=== PATIENT | female | born 2000 | race Caucasian/White ===

== ENCOUNTER 2024-11-12 08:07 | Emergency (ER) | payer BC, SELFPAY ==
[2024-11-12] VITALS (8 sets, daily range): BP systolic 104–131; BP diastolic 70–93; PULSE 55–106; RESP 16–19; TEMP 37; O2SAT 95–100; BMI 25.6
--- NOTE | 2024-11-12 08:23 | HMH.EDGENADL ---
Discharge Plan Disposition Patient Disposition: Home, Self-Care Prescriptions Prescriptions: New nitrofurantoin monohyd/m-cryst [Macrobid] 100 mg capsule 100 mg PO BID 5 Days Qty: 10 0RF Rx Instructions: must administer with a meal/food ondansetron 4 mg tablet,disintegrating 4 mg PO Q6H PRN (Reason: nausea and vomiting) Qty: 16 0RF Referrals Follow up/Referrals: Provider,Referral, MD [Primary Care Provider, Medical] - See instructions Activity Restrictions/Add. Instructions Additional Instructions/Restrictions: You are being prescribed Macrobid to treat your urinary tract infection. Take this as prescribed. You are also being prescribed Zofran to help with nausea. You likely have a viral illness causing your ear pain, sore throat and bodyaches. Continue Tylenol, ibuprofen at home to help with symptoms. Continue to hydrate well by drinking plenty of fluids, including water, sugar-free Gatorade and Pedialyte. Follow-up with your primary care physician early next week if symptoms do not improve. If you develop any new or worsening symptoms, or if you become concerned for your health for any reason, return to the emergency department for evaluation Clinical Impressions Clinical Impression: Urinary tract infection, Nausea Instructions Patient Instructions: DI for Urinary Tract Infection (UTI), DI for Urinary Tract Infection in Children Print Language Print Language: Malay Discharge ED Provider: Nik Monteiro Adult HPI General Chief complaint: Urogenital-Female Stated complaint: UTI symptoms, alot of pressure in back Time Seen by Provider: 11/12/24 08:16 Mode of Arrival: Ambulatory Source of Information: Patient Limitations: No Limitations History of Present Illness HPI narrative: Dionne Cummings is a 24-year-old female with a history of urinary tract infection/kidney infections who presents to the emergency department for complaints of possible UTI. Patient states that 2 weeks ago, she developed burning with urination, cloudy urine and frequent urination. She states that she took Azo [id number], which help with the pain with urination. She does state that urine still appears somewhat cloudy. She states over the last 2 to 3 days, she has had worsening bilateral lower back pain. She took ibuprofen last week with temporary relief of her symptoms. She states that she has not had fevers but does report that her temperature was low at 95 Fahrenheit with chills. She denies any abdominal pain. She denies any vaginal discharge or bleeding. She states that there are some similarities with her previous UTIs, however this does not feel exactly the same. Related Data Previous Rx's ?Medication ?Instructions ?Recorded nitrofurantoin 100 mg PO BID 5 days #10 caps 11/12/24 monohydrate/macrocrystals 100 mg capsule (Macrobid) ondansetron 4 mg disintegrating 4 mg PO Q6H PRN nausea and 11/12/24 tablet vomiting #16 tabs Allergies Allergy/AdvReac Type Severity Reaction Status Date / Time No Known Allergies Allergy Verified 11/12/24 08:28 [facility] Disclaimer: The information contained in this section may have been updated after the patient was seen, as this information can be updated by other users. Social History Smoking Status: Current every day smoker alcohol intake: never current occupational status: employed Travel in the last 8 weeks?: None ROS Obtained: Yes Systems reviewed as appropriate & no additional complaints except as documented Physical Exam General General appearance: alert and in no apparent distress Head Head exam: atraumatic Eye Eye exam: Present normal appearance ENT ENT exam: Present normal external ear exam Neck Neck exam: Present full ROM Chest Chest inspection: Present symmetric chest wall rise Respiratory Respiratory exam: Present normal lung sounds bilaterally; Absent respiratory distress Cardiovascular Cardiovascular exam: Present regular rate and normal rhythm Abdominal Exam Abdominal exam: Present soft, tenderness (suprapubic tenderness) and guarding (suprapubic); Absent distention Extremities Exam Extremities exam: Present normal inspection Back Exam Back exam: Present normal inspection, CVA tenderness (R) and CVA tenderness (L) Neurological Exam Neurological exam: Present alert and oriented X3 Psychiatric Psychiatric exam: Present normal affect Skin Skin exam: Present warm and dry Medical Decision Making Medical Records Screening: Per USPSTF and CDC recommendations, given the prevalence of disease in our region, it is our hospital?s policy to screen for HIV and viral Hepatitis for all patients aged 18 and over and those with ongoing risk factors. Dung Inquiry Pt receiving controlled substance: No Vital Signs: 11/12/24 08:17 11/12/24 08:19 11/12/24 08:30 Temperature 98.6 F Temperature Source Oral Pulse Rate 98 H 87 Pulse Rate [Left] 106 H Respiratory Rate 19 Blood Pressure 131/93 H 121/72 Blood Pressure [Right Arm] 131/93 H Blood Pressure Mean [Right Arm] 105 Blood Pressure Source [Right Arm] Automatic Cuff Blood Pressure Position [Right Arm] Sitting 02 Sat by Pulse Oximetry 98 98 99 Oxygen Delivery Method Room Air Room Air Room Air 11/12/24 08:45 11/12/24 09:01 11/12/24 09:15 Temperature Temperature Source Pulse Rate 99 H 75 58 L Pulse Rate [Left] Respiratory Rate Blood Pressure 121/93 H 109/76 L 104/71 L Blood Pressure [Right Arm] Blood Pressure Mean [Right Arm] Blood Pressure Source [Right Arm] Blood Pressure Position [Right Arm] 02 Sat by Pulse Oximetry 95 97 97 Oxygen Delivery Method Room Air Room Air Room Air 11/12/24 09:30 11/12/24 10:41 Temperature 98.6 F Temperature Source Pulse Rate 55 L 66 Pulse Rate [Left] Respiratory Rate 16 Blood Pressure 105/70 L 113/89 Blood Pressure [Right Arm] Blood Pressure Mean [Right Arm] Blood Pressure Source [Right Arm] Blood Pressure Position [Right Arm] 02 Sat by Pulse Oximetry 98 Oxygen Delivery Method Room Air Lab Data Lab Results 11/12/24 08:15: Urine Color Yellow, Urine Appearance Clear, Urine pH 6.0, Ur Specific [place] 1.025, Urine Protein 1+ A, Urine Glucose (UA) Negative, Urine Ketones Trace, Urine Blood Negative, Urine Nitrate Negative, Urine Bilirubin Negative, Urine Urobilinogen 1.0, Ur Leukocyte Esterase 1+ A, Urine RBC Occasional, Urine WBC 5-10, Ur Squamous Epith Cells 10-20, Urine Bacteria 1+ 11/12/24 08:27: WBC 7.7, RBC 4.81, Hgb 14.1, Hct 41.8, MCV 86.9, MCH 29.3, MCHC 33.7, RDW 12.1, Plt Count 305, MPV 9.4, Neut % (Auto) 64.0, Lymph % (Auto) 22.2, [place] % (Auto) 9.7 H, Eos % (Auto) 3.0, Baso % (Auto) 0.8, Neut # (Auto) 4.9, Lymph # (Auto) 1.7, [place] # (Auto) 0.8, Eos # (Auto) 0.2, Baso # (Auto) 0.1, Sodium 135 L, Potassium 3.5, Chloride 102, Carbon Dioxide 28, Anion Gap 8.5, BUN 5 L, Creatinine 0.70, Estimated Creat Clear 123, Estimated GFR 102, Est GFR ( Amer) 123, Glucose 103 H, Calcium 9.5, Total Bilirubin 1.0, AST 23, ALT 13, Alkaline Phosphatase 68, Total Protein 7.7, Albumin 4.0, Globulin 3.7 H, Albumin/Globulin Ratio 1.1, Lipase 53, Serum HCG, Qual Negative 11/12/24 08:27 11/12/24 08:27 Orders (Tests/Meds): ED MEDICATIONS Discontinued Medications Generic Name Dose Route Start Last Admin Trade Name Valentinq PRN Reason Stop Dose Admin Acetaminophen 1,000 mg 11/12/24 08:22 11/12/24 08:32 Acetaminophen 500mg Tab PO 11/12/24 08:23 1,000 mg ONCE ONE Administration Ibuprofen 600 mg 11/12/24 08:22 11/12/24 08:32 Ibuprofen 600 Mg Tablet PO 11/12/24 08:23 600 mg ONCE ONE Administration Ondansetron HCl 4 mg 11/12/24 08:22 11/12/24 08:32 Ondansetron 4mg/2ml Vial IV 11/12/24 08:23 4 mg ONCE ONE Administration ORDERS Category Date Time Status CBC w/Auto Diff [Complete Blood Count Auto Diff] Stat Lab 11/12/24 08:27 Completed CMP [Comprehensive Metabolic Panel] Stat Lab 11/12/24 08:27 Completed Lipase Stat Lab 11/12/24 08:27 Completed Serum [HCG Qualitative, Serum] Stat Lab 11/12/24 08:27 Completed UA [Urinalysis and Microscopic] Stat Lab 11/12/24 08:15 Completed Urine Culture Stat Micro 11/12/24 08:15 Received Medical Decision Narrative: Dionne Cummings is a 24-year-old female with a history of urinary tract infection/kidney infections who presents to the emergency department for complaints of possible UTI. Patient states that 2 weeks ago, she developed burning with urination, cloudy urine and frequent urination. She states that she took Azo [id number], which help with the pain with urination. She does state that urine still appears somewhat cloudy. She states over the last 2 to 3 days, she has had worsening bilateral lower back pain. She took ibuprofen last week with temporary relief of her symptoms. She states that she has not had fevers but does report that her temperature was low at 95 Fahrenheit with chills. She denies any abdominal pain. She denies any vaginal discharge or bleeding. She states that there are some similarities with her previous UTIs, however this does not feel exactly the same. Patient also notes that she is developed some pain in her right ear as well as a mild sore throat and bodyaches. She believes she may have a viral illness. On arrival, patient was mildly tachycardic but otherwise hemodynamically stable, normotensive and maintaining appropriate oxygen saturation on room air. Physical exam, stated above, reveals an overall nontoxic-appearing female in no distress. Cardiopulmonary exam without murmurs or rubs. No wheezing, rales or rhonchi. Abdomen is soft and nondistended. She has some mild tenderness over the suprapubic area without guarding or rebound. She does report some mild bilateral CVA tenderness. Oropharyngeal exam without tonsillar swelling or exudates. No significant posterior oropharyngeal erythema. Tympanic membranes are clear without bulging and normal light reflex. Patient does not have any cervical lymphadenopathy. Differential diagnosis includes, but is not limited to: Urinary tract infection, viral illness, electrolyte derangement, metabolic derangement, among others. There is no evidence of otitis media and low concern for strep pharyngitis given normal oropharyngeal exam and no lymphadenopathy. Workup in the emergency department included: Urinalysis, CBC, CMP, lipase, urinalysis, serum test. Patient was treated with 6 and milligrams ibuprofen, 1 g of oral Tylenol and 4 mg IV Zofran. Workup showed no leukocytosis, no anemia, platelets within normal limits, mild hyponatremia at 135 but nonactionable, electrolytes otherwise within normal limits. No NAVNEET. Liver enzymes within normal limits. Lipase normal at 53. test negative. Urinalysis with 1+ protein, negative nitrites but 1+ leukocyte Estrace. There are 10-20 squamous epithelial cells but also 5-10 white blood cells. 1+ bacteria. There is likely some degree of contamination with 10-20 squamous epithelial cells, but in the setting of her symptoms as well as leukocyte Estrace positive and bacteria in the urine with small bump in white blood cell count, this likely does represent a urinary tract infection and would benefit from antibiotics. She also likely has a component of a viral illness given her ear pain, sore throat and myalgias. I discharged patient on a course of Macrobid and prescribed Zofran for nausea. Encouraged her to hydrate well by continue to drink plenty of fluids. Return precautions were given. All questions were answered. She was in agreement with this plan. She was then discharged from the emergency department in stable condition. Critical Care Critical Care Time Critical Care Time: No
[2024-11-12 08:27] LABS: Microscopic, Urine URINE MICROSCOPIC (MICROSCOPIC)
[2024-11-12 08:28] LABS: Color,Urine YELLOW (Yellow); Glucose,Urine (UA) Negative (Negative); Ketones,Urine TRACE (Negative); Leukocyte Esterase,Urine 1+ (Negative); PH,Urine 6.0 (5.0-8.5); Protein,Urine 1+ (Negative); Specific Gravity, Urine 1.025 (1.005-1.030); Urobilinogen,Urine 1.0 EU/dl (0.2)
[2024-11-12] MEDS: ONDANSETRON 4MG/2ML VIAL 4 MG IV (08:32)
[2024-11-12] MEDS: ACETAMINOPHEN 500MG TAB 1000 MG PO (08:32)
[2024-11-12] MEDS: IBUPROFEN 600 MG TABLET PO (08:32)
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
[2024-11-12 08:47] LABS: Albumin Level 4.0 g/dl (3.5-5.0); Chloride 102 mmol/L (98-107); Potassium 3.5 mmoL/L (3.5-5.1); Sodium 135 mmol/L (136-145)
[2024-11-12 08:50] LABS: Bilirubin,Urine Negative (Negative)
[2024-11-12 08:50] LABS: Alanine Aminotransferase 13 U/L (12-78); Albumin/Globulin Ratio 1.1 (1.1-1.8); Alkaline Phosphatase 68 U/L (38-126); Anion Gap 8.5 mEq/L (5-15); Aspartate Amino Transferase 23 U/L (14-36); Bilirubin,Total 1.0 mg/dl (0.2-1.3); Blood Urea Nitrogen 5 mg/dl (7-17); Carbon Dioxide 28 mmol/L (22.0-30.0); Creatinine Clearance Estimated 123 mL/min (50-200); Creatinine,Serum 0.70 mg/dl (0.52-1.04); Estimated Glomerular Filt Rate 102 ml/min (>60); GFR (African American) 123 ML/MIN (>60); Globulin 3.7 g/dL (1.3-3.2); Glucose 103 mg/dl (74-100); Lipase 53 U/L (23-300); Total Protein,Serum 7.7 g/dl (6.3-8.2)
[2024-11-12 08:51] LABS: Calcium 9.5 mg/dl (8.4-10.2)
[2024-11-12 08:55] LABS: Bacteria,Urine 1+ /lpf; RBC,Urine Occasional #/hpf (0-3)
[2024-11-12 08:55] LABS: Hematocrit 41.8 % (37.0-47.0); Hemoglobin 14.1 g/dL (12.2-16.2); Immature Granulocytes % 0.3 %; Mean Corpuscular HGB Conc 33.7 g/dL (31.8-35.4); Mean Corpuscular Hemoglobin 29.3 pg (27.0-31.2); Mean Corpuscular Volume 86.9 fl (81-99); Nucleated Red Blood Cells % 0 %; Platelet Count 305 K/mm3 (142-424); Red Blood Count 4.81 M/mm3 (4.20-5.40); Red Cell Distribution Width-SD 38.9 fL; White Blood Count 7.7 K/mm3 (4.8-10.8)
[2024-11-12 09:02] LABS: HCG Qualitative, Serum Negative (Negative)
--- NOTE | 2024-11-13 18:12 | PC.NURSE ---
I discussed the pts prelim urine culture with . NO change needed to treatment plan at this time.
--- NOTE | 2024-11-14 10:31 | PC.NURSE ---
I discussed the pts final urine culture with the MD. No change in treatment.
== END 2024-11-12 10:46 | disposition home or self-care (01) ==
PROVIDERS: Emergency Provider Student in an Organized Health Care Education/Training Program
DX: N39.0 Urinary tract infection, site not specified (principal); R30.0 Dysuria; R11.0 Nausea; R35.0 Frequency of micturition; M54.59 Other low back pain
CPT/HCPCS: 80053; 81001; 83690; 84703; 85025; 87086; 87088; 87186; 96374; 99284; J2405